=== PATIENT | female | born 1970 | race Caucasian/White ===

== ENCOUNTER 2016-12-06 16:46 | Emergency (ER) | payer MEDICARE ==
[~2016-12-06 16:46] MED LIST: BACTRIM DS TAB1 EACH PO; CYCLOBENZAPRINE10 MG PO; DULOXETINE HCL30 MG PO; GABAPENTIN400 MG PO; LANSOPRAZOLE30 MG PO; LAXATIVE5 M1 PO; MIRTAZAPINE15 MG PO; NICODERM 21MG PA1 EA TD; OXYCODONE-ACET1 EAC1 PO; PROPRANOLOL HCL20 MG PO; SIMVASTATIN10 MG PO
== END 2016-12-06 20:53 | disposition home or self-care (01) ==
LOC: ER 16:46
DX: G43.909 Migraine, unspecified, not intractable, without status migrainosus (principal); R11.2 Nausea with vomiting, unspecified; Z98.51 Tubal ligation status; F17.210 Nicotine dependence, cigarettes, uncomplicated; Z79.899 Other long term (current) drug therapy; Z88.8 Allergy status to other drugs, medicaments and biological substances
CPT/HCPCS: 96372; 99283-25; J2930